=== PATIENT | female | born 1985 | race Hispanic/Latino ===

== ENCOUNTER 2017-12-31 13:15 | Emergency (ER) | payer OTHER ==
[2017-12-31 14:59] VITALS: BMI 27.4
[2017-12-31 15:22] LABS: SQUAMOUS EPITHIAL 2 /hpf (0-5); URINE BACTERIA OCC (<OCC); URINE BILIRUBIN NEGATIVE (NEGATIVE); URINE BLOOD NEGATIVE (NEGATIVE); URINE CLARITY SLIGHTY-CLOUDY (Clear); URINE COLOR STRAW (YELLOW); URINE GLUCOSE (UA) NEG (Normal); URINE LEUKOCYTE ESTERASE MOD Leu/uL (Negative); URINE NITRATE NEGATIVE (NEGATIVE); URINE PROTEIN NEGATIVE (NEGATIVE); URINE UROBILINOGEN 0.2-1.0 mg/dL (0.2-1.0)
[2017-12-31 23:12] VITALS: BP 102/63; PULSE 62
--- NOTE | 2018-01-01 09:59 | OBHP ---
Datetime: 12/31/2017 13:39 IP Adm Impression: , intrauterine ; No Active Labor IP Adm Impression Other: Round ligament Pain. IP Admit Plan: Observation/Evaluation; Discharge home Admit Comment, IP Provider: IUP at 24wks presents with some episodes of pelvic pressure. Denies VB o r LOF. She also denies frequesncy with dysuria and frequency. Pt reports that she had some brownish d ischarge X1 after intercourse on Sunday. No bleeding. TOCO- None, FHR- 150s, regular Speculum exam: No lesions or bleeding seen on the itroitus or vagina. Cervix - closed and long. Assessment: IUP at 24wks, Round Ligament discomfort Plan: Urinalysis. D/C home F/U with Dr Servin in 2 days. labor instructions given (Annotations: Data stored by CPN on behalf of user) Pelvic Type - PN: Adequate Extremities - PN: Normal Abdomen - PN: Normal Back - PN: Normal Breast - PN: Normal Lungs - PN: Normal Heart - PN: Normal Thyroid - PN: Normal Neurologic - PN: Normal HEENT - PN: Normal General - PN: Normal FHR - Baseline A Provider: 150s Membranes, Provider: Intact Comments, ACOG Physical Exam: Abd: Soft, NT, BS- present. Speculum Exam: An bleeding, No lesions, Cervix closed Gestation - Est Wks by US: 24.0 EGA AdmitDate IP: 24.4 Vital Signs Provider: Reviewed IP Chief Complaint: Maternal discomfort Dilatation, Provider: 0 Effacement, Provider: 0 Station, Provider: -3 Genitourinary Exam: Normal DTRs - PN: Normal
== END 2017-12-31 15:30 | disposition home or self-care (01) ==
LOC: H.EROB2 13:15 → H.EROB 14:07 → H.EROB2 15:30
DX: O26.92 Pregnancy related conditions, unspecified, second trimester (principal); R10.2 Pelvic and perineal pain; Z3A.24 24 weeks gestation of pregnancy